=== PATIENT | female | born 1965 | race Caucasian/White ===

== ENCOUNTER 2019-04-18 06:54 | Outpatient (CLI) | payer OTHER, SELFPAY ==
[2019-04-18 07:49] LABS: Alanine Aminotransferase 20 U/L (4-35); Albumin Level 4.2 g/dL (3.5-5.1); Alkaline Phosphatase 79 U/L (38-126); Aspartate Amino Transferase 25 U/L (14-36); Bilirubin,Total 0.4 mg/dL (0.2-1.3); Blood Urea Nitrogen 12 mg/dL (7-17); Calcium 8.6 mg/dL (8.4-10.2); Carbon Dioxide 28 mmol/L (22-30); Chloride 99 mmol/L (98-107); Cholesterol 223 mg/dL (0-200); Estimated Glomerular Filt Rate > 60; Glucose 142 mg/dL (65-105); HDL Direct 42 mg/dL; Potassium 4.1 mmol/L (3.4-5.0); Sodium 139 mmol/L (137-145); Triglycerides 139 mg/dL (<150)
[2019-04-18 07:55] LABS: Hemoglobin A1C 6.9 % (<5.7)
[2019-04-18 08:00] LABS: LDL Cholesterol Direct 152 mg/dL
== END 2019-04-18 06:55 | disposition home or self-care (01) ==
PROVIDERS: PCP Emergency Medicine; Visit Provider Emergency Medicine
DX: E11.9 Type 2 diabetes mellitus without complications (principal); E78.5 Hyperlipidemia, unspecified
CPT/HCPCS: 36415; 80053; 80061; 83036

== ENCOUNTER 2019-09-11 07:51 | Outpatient (CLI) | payer OTHER, SELFPAY ==
--- NOTE | ~2019-09-11 | XR_ITS ---
XR hip RT 2V w AP pelvis 09/11/2019 08:23 Indication: Right hip pain Procedure: 3 views right hip Comparison: 09/02/2005 Findings: There is mild osteoarthritis of the right hip. There is a bridging osteophyte from the right L5 transverse process to the ileum. Mild degenerative c hanges of the sacroiliac joints. No acute fracture or traumatic malalignment. Impression: 1: Mild osteoarthritis of the right hip. Reviewed, dictated and finalized at location B. Impression: 1: Mild osteoarthritis of the right hip.
[2019-09-11 08:24] LABS: Alanine Aminotransferase 19 U/L (4-35); Albumin Level 4.3 g/dL (3.5-5.1); Alkaline Phosphatase 73 U/L (38-126); Aspartate Amino Transferase 23 U/L (14-36); Bilirubin,Total 0.4 mg/dL (0.2-1.3); Blood Urea Nitrogen 15 mg/dL (7-17); Carbon Dioxide 29 mmol/L (22-30); Chloride 101 mmol/L (98-107); Cholesterol 257 mg/dL (0-200); Estimated Glomerular Filt Rate > 60; Glucose 141 mg/dL (65-105); HDL Direct 42 mg/dL; Potassium 4.4 mmol/L (3.4-5.0); Sodium 137 mmol/L (137-145); Triglycerides 197 mg/dL (<150)
[2019-09-11 08:34] LABS: LDL Cholesterol Direct 169 mg/dL
== END 2019-09-11 07:52 | disposition home or self-care (01) ==
PROVIDERS: PCP Emergency Medicine; Visit Provider Emergency Medicine
DX: M25.551 Pain in right hip (principal); E78.5 Hyperlipidemia, unspecified; E11.9 Type 2 diabetes mellitus without complications; M16.11 Unilateral primary osteoarthritis, right hip
CPT/HCPCS: 36415; 73502; 80053; 80061; 83036

== ENCOUNTER 2019-09-29 08:48 | Outpatient (CLI) | payer OTHER, SELFPAY ==
--- NOTE | ~2019-09-29 | MM_ITS ---
EXAMINATION: MM screening norma BI w deana HISTORY: Screening mammogram TECHNIQUE: Craniocaudal and mediolateral oblique 3-D tomosynthesis images were obtained and synthetic 2-D images were generated. Rotated lateral cc view of left breast. CAD analysis was submitted and in terpreted. COMPARISON: No prior mammogram is available for comparison at this institution. BREAST PARENCHYMAL COMPOSITION: There are scattered areas of fibroglandular density. FINDINGS: There is no evidence of suspicious mass, calcification, or architectural distortion to sugg est malignancy in either breast. There has been no suspicious interval change. IMPRESSION: 1. No mammographic evidence of malignancy. 2. Recommend routine screening mammography in one year. BI-RADS Category 1: Negative Reviewed, dictated and finalized at location A.
== END 2019-09-29 08:49 | disposition home or self-care (01) ==
PROVIDERS: PCP Emergency Medicine; Visit Provider Emergency Medicine
DX: Z12.31 Encounter for screening mammogram for malignant neoplasm of breast (principal)
CPT/HCPCS: 77063; 77067

== ENCOUNTER 2019-11-10 07:56 | Outpatient (CLI) | payer OTHER, SELFPAY ==
[2019-11-10 08:55] LABS: Hemoglobin A1C 6.6 % (<5.7)
[2019-11-10 09:16] LABS: Creatinine Urine 83.3 mg/dL
[2019-11-10 09:18] LABS: Alanine Aminotransferase 18 U/L (4-35); Albumin Level 4.1 g/dL (3.5-5.1); Alkaline Phosphatase 67 U/L (38-126); Anion Gap 7 mmol/L (8-16); Aspartate Amino Transferase 20 U/L (14-36); Bilirubin,Total 0.4 mg/dL (0.2-1.3); Blood Urea Nitrogen 14 mg/dL (7-17); Calcium 8.8 mg/dL (8.4-10.2); Carbon Dioxide 30 mmol/L (22-30); Chloride 99 mmol/L (98-107); Cholesterol 190 mg/dL (0-200); Estimated Glomerular Filt Rate > 60; Glucose 134 mg/dL (65-105); HDL Direct 43 mg/dL; Potassium 4.2 mmol/L (3.4-5.0); Sodium 136 mmol/L (137-145); Triglycerides 117 mg/dL (<150)
[2019-11-10 09:29] LABS: LDL Cholesterol Direct 123 mg/dL
[2019-11-10 09:36] LABS: MALB Creatinine Ratio < 7.2 mg/g (0-30); Microalbumin Urine Random < 6.0 mg/L (0-16.7)
== END 2019-11-10 07:57 | disposition home or self-care (01) ==
LOC: ANHLAB 07:58
PROVIDERS: PCP Emergency Medicine; Visit Provider Emergency Medicine
DX: E11.9 Type 2 diabetes mellitus without complications (principal)
CPT/HCPCS: 36415; 80053; 80061; 82043; 83036

== ENCOUNTER 2020-03-14 07:59 | Outpatient (CLI) | payer OTHER, SELFPAY ==
[2020-03-14 08:59] LABS: Alanine Aminotransferase 22 U/L (4-35); Albumin Level 4.2 g/dL (3.5-5.1); Alkaline Phosphatase 73 U/L (38-126); Anion Gap 6 mmol/L (8-16); Aspartate Amino Transferase 24 U/L (14-36); Bilirubin,Total 0.3 mg/dL (0.2-1.3); Blood Urea Nitrogen 12 mg/dL (7-17); Calcium 9.8 mg/dL (8.4-10.2); Carbon Dioxide 33 mmol/L (22-30); Chloride 100 mmol/L (98-107); Cholesterol 192 mg/dL (0-200); Estimated Glomerular Filt Rate > 60; Glucose 161 mg/dL (65-105); HDL Direct 46 mg/dL; Potassium 4.2 mmol/L (3.4-5.0); Sodium 139 mmol/L (137-145); Triglycerides 143 mg/dL (<150)
[2020-03-14 09:11] LABS: LDL Cholesterol Direct 126 mg/dL
[2020-03-14 09:33] LABS: MALB Creatinine Ratio 30.9 mg/g (0-30)
== END 2020-03-14 08:00 | disposition home or self-care (01) ==
PROVIDERS: PCP Emergency Medicine; Visit Provider Emergency Medicine
DX: E78.5 Hyperlipidemia, unspecified (principal); E11.9 Type 2 diabetes mellitus without complications
CPT/HCPCS: 36415; 80053; 80061; 82043

== ENCOUNTER 2020-07-16 10:23 | Outpatient (CLI) | payer OTHER, SELFPAY ==
[2020-07-16 11:07] LABS: Hemoglobin A1C 7.3 % (<5.7)
[2020-07-16 11:10] LABS: Alanine Aminotransferase 29 U/L (4-35); Albumin Level 4.4 g/dL (3.5-5.1); Alkaline Phosphatase 73 U/L (38-126); Anion Gap 6 mmol/L (8-16); Aspartate Amino Transferase 33 U/L (14-36); Bilirubin,Total 0.3 mg/dL (0.2-1.3); Blood Urea Nitrogen 12 mg/dL (7-17); Calcium 9.9 mg/dL (8.4-10.2); Carbon Dioxide 32 mmol/L (22-30); Chloride 103 mmol/L (98-107); Cholesterol 222 mg/dL (0-200); Estimated Glomerular Filt Rate > 60; Glucose 150 mg/dL (65-105); HDL Direct 52 mg/dL; Potassium 4.1 mmol/L (3.4-5.0); Sodium 141 mmol/L (137-145); Triglycerides 154 mg/dL (<150)
[2020-07-16 11:21] LABS: LDL Cholesterol Direct 143 mg/dL
[2020-07-16 11:33] LABS: Creatinine Urine 40.6 mg/dL
[2020-07-16 11:37] LABS: MALB Creatinine Ratio 37.9 mg/g (0-30); Microalbumin Urine Random 15.4 mg/L (0-16.7)
== END 2020-07-16 10:24 | disposition home or self-care (01) ==
PROVIDERS: PCP Emergency Medicine; Visit Provider Emergency Medicine
DX: E78.5 Hyperlipidemia, unspecified (principal); E11.9 Type 2 diabetes mellitus without complications
CPT/HCPCS: 36415; 80053; 80061; 82043; 83036

== ENCOUNTER 2020-09-08 13:26 | Outpatient (CLI) | payer OTHER, SELFPAY ==
--- NOTE | ~2020-09-08 | MR_ITS ---
EXAMINATION: MR lumbar spine wo con DATE: 09/08/2020 14:10 INDICATION: Low back pain. Right hip pain. TECHNIQUE: Magnetic resonance imaging (MRI) of the lumbar spine was performed without intravenous con trast. Sequences included sagittal T2-weighted FSE, sagittal T2-weighted FS FSE, sagittal T1-weighted FSE, and axial T2-weighted FSE. COMPARISON: None FINDINGS: There is 11 degrees dextroscoliosis of thoracolumbar spine. There is 3 mm retrolisthesis of L1 on L2. Vertebral body heights are normal. There is moderately decreased disc height at L1-L2, mil dly decreased disc height at L2-L3 and L3-L4, moderately decreased disc height at L4-L5, and severely decreased disc height at L5-S1 with endplate remodeling. The distal spinal cord signal intensity is normal. The conus medullaris is at L1. The following disc levels are specifically discussed: L1-L2: The disc is bulging and has an annular fissure. There is mild bilateral facet joint osteoarthr itis. There is mild right and moderate left neural foraminal stenosis. There is mild central canal st enosis. L2-L3: The disc is bulging and has an annular fissure. There is severe bilateral facet joint osteoart hritis. There is mild bilateral neural foraminal stenosis. There is moderate central canal stenosis. L3-L4: The disc is bulging with superimposed left central extrusion. There is severe bilateral facet joint osteoarthritis. There is mild right and moderate left neural foraminal stenosis. There is moder ate central canal stenosis. L4-L5: The disc is bulging with superimposed right central extrusion. There is severe bilateral facet joint osteoarthritis. There is moderate right and mild left neural foraminal stenosis. There is mild central canal stenosis. L5-S1: The disc is bulging and has an annular fissure. There is moderate bilateral facet joint osteoa rthritis. There is mild bilateral neural foraminal stenosis. There is mild central canal stenosis. IMPRESSION: 1. Severe lumbar spondylosis. 2. Thoracolumbar dextroscoliosis. Reviewed, dictated and finalized at location A.
== END 2020-09-08 13:27 | disposition home or self-care (01) ==
LOC: ANHIMG 13:33
PROVIDERS: PCP Emergency Medicine; Visit Provider Nurse Practitioner Family
DX: M25.551 Pain in right hip (principal); M47.896 Other spondylosis, lumbar region
CPT/HCPCS: 72148

== ENCOUNTER 2020-09-24 08:39 | Outpatient (CLI) | payer OTHER, SELFPAY ==
--- NOTE | ~2020-09-24 | XR_ITS ---
EXAMINATION: XR lg joint inject/asp w image DATE: 09/24/2020 09:29 INDICATION: Right hip arthritis TECHNIQUE: A time-out was performed to verify the patient's name, date of , and procedure to b e performed. The procedure including the risks, benefits, and alternatives was discussed with the pat ient. Risks discussed included bleeding and infection. The patient understood the risks and agreed to proceed. The skin overlying the right hip joint was prepped and draped in usual sterile fashion. A nesthetic was administered with 1% lidocaine subcutaneously. A 22 G needle was advanced under fluoro scopic guidance into the joint. Injection of 1 mL of Omnipaque 240 confirmed intra-articular positio n of the needle. Subsequently, injectate consisting of 3 mL of a 2:1 mixture of 0.5% bupivacaine: 80 mg/mL Depo-Medrol for a total dosage of 80 mg Depo-Medrol was instilled. Washout of contrast was see n confirming intra-articular administration. The needle was removed and the entry site was cleaned an d dressed. There were no immediate complications. Fluoroscopy exposure time was 0.1 minutes. The tot al number of images was 3. FINDINGS: Real-time fluoroscopy demonstrates the needle in the right hip joint. Patient's pain prior to procedure:03/10. Patient's pain following the procedure: 03/10. Mild right hip osteoarthritis. IMPRESSION: 1. Successful right hip joint injection of local anesthetic and steroid. Reviewed, dictated and finalized at location A.
== END 2020-09-24 08:40 | disposition home or self-care (01) ==
LOC: ANHIMG 08:41
PROVIDERS: PCP Emergency Medicine; Visit Provider Nurse Practitioner Family
DX: M16.11 Unilateral primary osteoarthritis, right hip (principal)
CPT/HCPCS: 20610; 77002; J1040; Q9966

== ENCOUNTER 2020-10-08 09:06 | Outpatient (CLI) | payer OTHER, SELFPAY ==
--- NOTE | ~2020-10-08 | MM_ITS ---
EXAMINATION: MM screening norma BI w deana HISTORY: Screening TECHNIQUE: Craniocaudal and mediolateral oblique 3-D tomosynthesis images were obtained and synthetic 2-D images were generated. CAD analysis was submitted and interpreted. COMPARISON: 09/29/2019 BREAST PARENCHYMAL COMPOSITION: There are scattered areas of fibroglandular density. FINDINGS: There is no evidence of suspicious mass, calcification, or architectural distortion to sugg est malignancy in either breast. There has been no suspicious interval change. IMPRESSION: 1. No mammographic evidence of malignancy. 2. Recommend routine screening mammography in one year. BI-RADS Category 1: Negative Reviewed, dictated and finalized at location A.
== END 2020-10-08 09:07 | disposition home or self-care (01) ==
PROVIDERS: PCP Emergency Medicine; Visit Provider Emergency Medicine
DX: Z12.31 Encounter for screening mammogram for malignant neoplasm of breast (principal)
CPT/HCPCS: 77063; 77067

== ENCOUNTER 2020-12-17 07:13 | Outpatient (CLI) | payer OTHER, SELFPAY ==
[2020-12-17 08:33] LABS: Alanine Aminotransferase 20 U/L (4-35); Albumin Level 4.4 g/dL (3.5-5.1); Alkaline Phosphatase 76 U/L (38-126); Anion Gap 12 mmol/L (8-16); Aspartate Amino Transferase 22 U/L (14-36); Bilirubin,Total 0.4 mg/dL (0.2-1.3); Blood Urea Nitrogen 14 mg/dL (7-17); Calcium 9.3 mg/dL (8.4-10.2); Carbon Dioxide 25 mmol/L (22-30); Chloride 104 mmol/L (98-107); Cholesterol 208 mg/dL (0-200); Estimated Glomerular Filt Rate > 60; Glucose 170 mg/dL (65-110); HDL Direct 48 mg/dL; Potassium 4.2 mmol/L (3.4-5.0); Sodium 141 mmol/L (137-145); Triglycerides 146 mg/dL (<150)
[2020-12-17 08:39] LABS: Hemoglobin A1C 7.5 % (<5.7)
[2020-12-17 08:44] LABS: LDL Cholesterol Direct 129 mg/dL
[2020-12-17 09:16] LABS: Creatinine Urine 144.1 mg/dL
[2020-12-17 09:20] LABS: MALB Creatinine Ratio 6.7 mg/g (0-30); Microalbumin Urine Random 9.6 mg/L (0-16.7)
== END 2020-12-17 07:14 | disposition home or self-care (01) ==
PROVIDERS: PCP Emergency Medicine; Visit Provider Emergency Medicine
DX: E78.2 Mixed hyperlipidemia (principal); E11.9 Type 2 diabetes mellitus without complications
CPT/HCPCS: 36415; 80053; 80061; 82043; 83036

== ENCOUNTER 2021-03-28 07:28 | Outpatient (CLI) | payer OTHER, SELFPAY ==
[2021-03-28 08:11] LABS: Alanine Aminotransferase 21 U/L (4-35); Albumin Level 4.3 g/dL (3.5-5.1); Alkaline Phosphatase 78 U/L (38-126); Anion Gap 5 mmol/L (8-16); Aspartate Amino Transferase 22 U/L (14-36); Bilirubin,Total 0.2 mg/dL (0.2-1.3); Blood Urea Nitrogen 14 mg/dL (7-17); Calcium 9.4 mg/dL (8.4-10.2); Carbon Dioxide 30 mmol/L (22-30); Chloride 102 mmol/L (98-107); Cholesterol 204 mg/dL (0-200); Estimated Glomerular Filt Rate > 60; Glucose 161 mg/dL (65-110); HDL Direct 40 mg/dL; Sodium 137 mmol/L (137-145); Triglycerides 154 mg/dL (<150)
[2021-03-28 08:18] LABS: Hemoglobin A1C 7.1 % (<5.7)
[2021-03-28 08:20] LABS: LDL Cholesterol Direct 123 mg/dL
== END 2021-03-28 07:29 | disposition home or self-care (01) ==
PROVIDERS: PCP Emergency Medicine; Visit Provider Emergency Medicine
DX: E78.2 Mixed hyperlipidemia (principal); I10 Essential (primary) hypertension; E11.9 Type 2 diabetes mellitus without complications
CPT/HCPCS: 36415; 80053; 80061; 83036

== ENCOUNTER 2021-07-16 08:17 | Outpatient (CLI) | payer OTHER, SELFPAY ==
[2021-07-16 08:48] LABS: Basophils Percent Auto 0.4 % (0.2-1.2); Eosinophils Absolute Auto 0.4 K/mm3 (0-0.3); Eosinophils Percent Auto 8.7 % (0-4.4); Hematocrit 36.3 % (37.0-47.0); Hemoglobin 11.9 g/dL (12.0-15.0); Immature Granulocyte Absolute 0.02 K/mm3 (0.00-0.031); Immature Granulocyte Percent A 0.4 % (0-0.5); Lymphocytes Absolute Auto 1.19 K/mm3 (0.9-3.2); Lymphocytes Percent Auto 23.4 % (18.3-44.2); Mean Corpuscular HGB Conc 32.8 g/dl (32-36); Mean Corpuscular Hemoglobin 29.5 pg (26-34); Mean Corpuscular Volume 89.9 fl (80-100); Monocytes Absolute Auto 0.4 K/mm3 (0.1-0.6); Monocytes Percent Auto 8.7 % (2.6-8.5); Neutrophils Percent Auto 58.4 % (45.5-73.1); Platelet Count Result 254 k/mm3 (150-375); Red Blood Count 4.04 M/mm3 (4.2-5.4); Red Cell Distribution Width 13.4 % (11.5-14.5); White Blood Count 5.1 K/mm3 (4.5-10.0)
[2021-07-16 08:52] LABS: Appearance Urine Clear (Clear); Bilirubin Urine Negative (Negative); Color Urine Yellow (Yellow); Glucose Urine UA Negative (Negative); Ketones Urine Negative (Negative); Leukocyte Esterase Ur 2+ LEU/UL (NEGATIVE); Nitrate Urine Negative (Negative); Protein Urine Negative (Negative); Specific Grav Ur 1.015 (1.001-1.035); Urobilinogen Urine 0.2 mg/dL (<2.0)
[2021-07-16 09:03] LABS: CRP < 0.5 mg/dL (<1.0); Phosphorus 3.2 mg/dL (2.5-4.5); Uric Acid 5.4 mg/dL (2.5-7.5)
[2021-07-16 09:06] LABS: Alanine Aminotransferase 20 U/L (6-35); Alkaline Phosphatase 75 U/L (38-126); Anion Gap 10 mmol/L (8-16); Aspartate Amino Transferase 23 U/L (14-36); Bilirubin,Total 0.3 mg/dL (0.2-1.3); Blood Urea Nitrogen 13 mg/dL (7-17); Calcium 9.1 mg/dL (8.4-10.2); Carbon Dioxide 28 mmol/L (22-30); Chloride 102 mmol/L (98-107); Cholesterol 207 mg/dL (0-200); Estimated Glomerular Filt Rate > 60; Glucose 140 mg/dL (65-110); HDL Direct 45 mg/dL; Potassium 4.2 mmol/L (3.4-5.0); Sodium 140 mmol/L (137-145); Triglycerides 106 mg/dL (<150)
[2021-07-16 09:07] LABS: INR 1.1; Prothrombin Time 13.4 Seconds (11.1-14.7)
[2021-07-16 09:08] LABS: Iron 74 ug/dL (37-170)
[2021-07-16 09:10] LABS: Add Urine Microscopic? YES; Blood Urine Trace-Intact (Negative)
[2021-07-16 09:12] LABS: Bacteria Urine Trace /hpf; RBC Urine 0-2 /hpf (0-2); Squamous Epithelial Cell Urine Rare /hpf (Few); WBC Urine 16-20 /hpf (0-3)
[2021-07-16 09:17] LABS: LDL Cholesterol Direct 127 mg/dL; Percent Iron Saturation 26 % (20-50)
[2021-07-16 09:24] LABS: Vitamin D 25 Hydroxy 87.2 ng/mL
[2021-07-16 09:35] LABS: Creatinine Urine 60.7 mg/dL
[2021-07-16 09:36] LABS: Hemoglobin A1C 6.9 % (<5.7)
[2021-07-16 09:40] LABS: MALB Creatinine Ratio 14.2 mg/g (0-30); Microalbumin Urine Random 8.6 mg/L (0-16.7)
[2021-07-16 10:09] LABS: Folic Acid > 20.0 ng/mL (2.76->20)
[2021-07-19 11:16] LABS: Triiodothyronine T3 Free 3.5 pg/mL (2.3-4.2)
[2021-07-20 02:07] LABS: Insulin Level Total 14.8 uIU/mL (<=19.6)
== END 2021-07-16 08:18 | disposition home or self-care (01) ==
LOC: ANHLAB 08:21
PROVIDERS: PCP Emergency Medicine; Visit Provider Emergency Medicine
DX: E78.2 Mixed hyperlipidemia (principal); E11.9 Type 2 diabetes mellitus without complications; I10 Essential (primary) hypertension; E88.81 Metabolic syndrome and other insulin resistance; Z79.899 Other long term (current) drug therapy; E61.1 Iron deficiency; E03.9 Hypothyroidism, unspecified; E16.2 Hypoglycemia, unspecified; R82.998 Other abnormal findings in urine; E55.9 Vitamin D deficiency, unspecified; E53.8 Deficiency of other specified B group vitamins; E79.0 Hyperuricemia without signs of inflammatory arthritis and tophaceous disease
CPT/HCPCS: 36415; 80053; 80061; 81001; 82043; 82306; 82607; 82728; 82746; 83036; 83525; 83540; 83550; 83735; 84100; 84443; 84481; 84550; 85025; 85610; 86140

== ENCOUNTER 2021-08-05 09:21 | Outpatient (CLI) | payer OTHER, SELFPAY ==
--- NOTE | 2021-08-05 09:43 | ECG_ITS ---
Measurements Intervals [place] Rate: 78 P: 59 SD: 160 QRS: 34 QRSD: 102 T: 44 QT: 374 QTc: 427 Interpretive Statements SINUS RHYTHM Electronically Signed On 08-05-2021 11:16:58 CDT by Xavier Toledo M.D.
[2021-08-05 09:58] LABS: Basophils Percent Auto 0.5 % (0.2-1.2); Eosinophils Absolute Auto 0.6 K/mm3 (0-0.3); Eosinophils Percent Auto 8.8 % (0-4.4); Hematocrit 37.4 % (37.0-47.0); Hemoglobin 11.9 g/dL (12.0-15.0); Immature Granulocyte Absolute 0.02 K/mm3 (0.00-0.031); Immature Granulocyte Percent A 0.3 % (0-0.5); Lymphocytes Absolute Auto 1.37 K/mm3 (0.9-3.2); Lymphocytes Percent Auto 21.2 % (18.3-44.2); Mean Corpuscular HGB Conc 31.8 g/dl (32-36); Mean Corpuscular Hemoglobin 29.2 pg (26-34); Mean Corpuscular Volume 91.9 fl (80-100); Mean Platelet Volume 9.4 fl (7.4-10.4); Monocytes Absolute Auto 0.5 K/mm3 (0.1-0.6); Monocytes Percent Auto 7.4 % (2.6-8.5); Neutrophils Percent Auto 61.8 % (45.5-73.1); Platelet Count Result 281 k/mm3 (150-375); Red Blood Count 4.07 M/mm3 (4.2-5.4); Red Cell Distribution Width 13.8 % (11.5-14.5); White Blood Count 6.5 K/mm3 (4.5-10.0)
[2021-08-05 10:05] LABS: Alanine Aminotransferase 19 U/L (6-35); Albumin Level 4.3 g/dL (3.5-5.1); Alkaline Phosphatase 80 U/L (38-126); Anion Gap 8 mmol/L (8-16); Aspartate Amino Transferase 21 U/L (14-36); Bilirubin,Total 0.4 mg/dL (0.2-1.3); Blood Urea Nitrogen 14 mg/dL (7-17); Calcium 8.9 mg/dL (8.4-10.2); Carbon Dioxide 28 mmol/L (22-30); Chloride 104 mmol/L (98-107); Estimated Glomerular Filt Rate > 60; Glucose 148 mg/dL (65-110); Sodium 140 mmol/L (137-145)
== END 2021-08-05 09:22 | disposition home or self-care (01) ==
LOC: ANHLAB 09:25
PROVIDERS: PCP Emergency Medicine; Visit Provider Emergency Medicine
DX: Z01.810 Encounter for preprocedural cardiovascular examination (principal); Z01.818 Encounter for other preprocedural examination
CPT/HCPCS: 36415; 80053; 85025; 93005

== ENCOUNTER 2022-01-28 07:28 | Outpatient (CLI) | payer OTHER, SELFPAY ==
[2022-01-28 08:24] LABS: Hemoglobin A1C 7.1 % (<5.7)
[2022-01-28 08:25] LABS: Alanine Aminotransferase 18 U/L (6-35); Albumin Level 4.3 g/dL (3.5-5.1); Alkaline Phosphatase 72 U/L (38-126); Anion Gap 6 mmol/L (8-16); Aspartate Amino Transferase 22 U/L (14-36); Bilirubin,Total 0.2 mg/dL (0.2-1.3); Blood Urea Nitrogen 15 mg/dL (7-17); Carbon Dioxide 29 mmol/L (22-30); Chloride 102 mmol/L (98-107); Cholesterol 219 mg/dL (0-200); Estimated Glomerular Filt Rate > 60; Glucose 141 mg/dL (65-110); HDL Direct 43 mg/dL; Potassium 4.4 mmol/L (3.4-5.0); Sodium 137 mmol/L (137-145); Triglycerides 90 mg/dL (<150)
[2022-01-28 08:36] LABS: LDL Cholesterol Direct 123 mg/dL
[2022-01-28 08:48] LABS: Creatinine Urine 141.7 mg/dL
[2022-01-28 08:52] LABS: MALB Creatinine Ratio 10.9 mg/g (0-30); Microalbumin Urine Random 15.5 mg/L (0-16.7)
== END 2022-01-28 07:29 | disposition home or self-care (01) ==
LOC: ANHLAB 07:30
PROVIDERS: PCP Emergency Medicine; Visit Provider Emergency Medicine
DX: E11.9 Type 2 diabetes mellitus without complications (principal); E78.5 Hyperlipidemia, unspecified; I10 Essential (primary) hypertension
CPT/HCPCS: 36415; 80053; 80061; 82043; 83036

== ENCOUNTER 2022-05-26 08:04 | Outpatient (CLI) | payer OTHER, SELFPAY ==
[2022-05-26 10:06] LABS: Prothrombin Time 12.7 Seconds (11.1-14.7)
[2022-05-26 10:07] LABS: Partial Thromboplastin Time 22.8 SECONDS (22.3-36.8)
== END 2022-05-26 08:05 | disposition home or self-care (01) ==
PROVIDERS: PCP Emergency Medicine; Visit Provider Emergency Medicine
DX: R23.3 Spontaneous ecchymoses (principal)
CPT/HCPCS: 36415; 85610; 85730

== ENCOUNTER 2022-07-30 07:45 | Outpatient (CLI) | payer OTHER, SELFPAY ==
[2022-07-30 08:16] LABS: Alanine Aminotransferase 22 U/L (6-35); Albumin Level 4.4 g/dL (3.5-5.1); Alkaline Phosphatase 71 U/L (38-126); Anion Gap 8 mmol/L (8-16); Aspartate Amino Transferase 25 U/L (14-36); Bilirubin,Total 0.4 mg/dL (0.2-1.3); Blood Urea Nitrogen 11 mg/dL (7-17); Calcium 8.8 mg/dL (8.4-10.2); Carbon Dioxide 28 mmol/L (22-30); Chloride 101 mmol/L (98-107); Cholesterol 218 mg/dL (0-200); Estimated Glomerular Filt Rate > 60; Glucose 144 mg/dL (65-110); HDL Direct 46 mg/dL; Potassium 3.9 mmol/L (3.4-5.0); Sodium 137 mmol/L (137-145); Triglycerides 154 mg/dL (<150)
[2022-07-30 08:30] LABS: LDL Cholesterol Direct 137 mg/dL
[2022-08-03 17:56] LABS: Vitamin D 1,25 (OH)2 Total 27 pg/mL (18-72); Vitamin D2 1,25 (OH)2 <8 pg/mL; Vitamin D3 1,25 (OH)2 27 pg/mL
== END 2022-07-30 07:46 | disposition home or self-care (01) ==
LOC: ANHLAB 07:47
PROVIDERS: PCP Emergency Medicine; Visit Provider Emergency Medicine
DX: R53.83 Other fatigue (principal); E11.9 Type 2 diabetes mellitus without complications; I10 Essential (primary) hypertension
CPT/HCPCS: 36415; 80053; 80061; 82652; 83036

== ENCOUNTER 2023-04-14 07:47 | Outpatient (CLI) | payer OTHER, SELFPAY ==
[2023-04-14 08:27] LABS: Alanine Aminotransferase 20 U/L (6-35); Albumin Level 4.3 g/dL (3.5-5.1); Alkaline Phosphatase 72 U/L (38-126); Anion Gap 3 mmol/L (8-16); Aspartate Amino Transferase 24 U/L (14-36); Bilirubin,Total 0.3 mg/dL (0.2-1.3); Blood Urea Nitrogen 12 mg/dL (7-17); Calcium 9.2 mg/dL (8.4-10.2); Carbon Dioxide 33 mmol/L (22-30); Chloride 105 mmol/L (98-107); Cholesterol 224 mg/dL (0-200); Estimated Glomerular Filt Rate > 60; Glucose 180 mg/dL (65-110); HDL Direct 47 mg/dL; Potassium 4.1 mmol/L (3.4-5.0); Sodium 141 mmol/L (137-145); Triglycerides 144 mg/dL (<150)
[2023-04-14 08:31] LABS: Hemoglobin A1C 7.8 % (<5.7)
[2023-04-14 08:37] LABS: LDL Cholesterol Direct 139 mg/dL
[2023-04-14 09:15] LABS: Vitamin D 25 Hydroxy 91.8 ng/mL
== END 2023-04-14 07:48 | disposition home or self-care (01) ==
LOC: ANHLAB 07:48
PROVIDERS: PCP Emergency Medicine; Visit Provider Emergency Medicine
DX: I10 Essential (primary) hypertension (principal); E11.9 Type 2 diabetes mellitus without complications; E78.5 Hyperlipidemia, unspecified; E55.9 Vitamin D deficiency, unspecified
CPT/HCPCS: 36415; 80053; 80061; 82306; 83036

== ENCOUNTER 2023-06-02 08:50 | Outpatient (CLI) | payer OTHER, SELFPAY ==
--- NOTE | 2023-06-02 09:30 | ECG_ITS ---
Measurements Intervals [place] Rate: 64 P: 63 RI: 187 QRS: 27 QRSD: 108 T: 38 QT: 382 QTc: 394 Interpretive Statements SINUS RHYTHM INCOMPLETE RIGHT BUNDLE BRANCH BLOCK BORDERLINE ECG COMPARED TO ECG 08/05/2021 09:52:00 INCOMPLETE RIGHT BUNDLE-BRANCH BLOCK NOW PRESENT Electronically Signed On 06-02-2023 14:35:23 CDT by Ernie James M.D.
[2023-06-02 09:56] LABS: Hematocrit 38.5 % (37.0-47.0); Hemoglobin 12.4 g/dL (12.0-15.0); Mean Corpuscular HGB Conc 32.2 g/dl (32-36); Mean Corpuscular Hemoglobin 29.4 pg (26-34); Mean Corpuscular Volume 91.2 fl (80-100); Mean Platelet Volume 9.8 fl (7.4-10.4); Platelet Count Result 280 k/mm3 (150-375); Red Blood Count 4.22 M/mm3 (4.2-5.4); Red Cell Distribution Width 13.6 % (11.5-14.5); White Blood Count 5.9 K/mm3 (4.5-10.0)
[2023-06-02 10:11] LABS: Anion Gap 6 mmol/L (4-12); Blood Urea Nitrogen 11 mg/dL (7-17); Calcium 9.5 mg/dL (8.4-10.2); Carbon Dioxide 30 mmol/L (22-30); Chloride 102 mmol/L (98-107); Estimated Glomerular Filt Rate > 60; Glucose 172 mg/dL (65-110); Sodium 138 mmol/L (137-145)
== END 2023-06-02 08:51 | disposition home or self-care (01) ==
LOC: ANHLAB 08:52
PROVIDERS: PCP Emergency Medicine; Visit Provider Emergency Medicine
DX: Z01.810 Encounter for preprocedural cardiovascular examination (principal); R93.1 Abnormal findings on diagnostic imaging of heart and coronary circulation; I45.10 Unspecified right bundle-branch block; R53.83 Other fatigue; E78.5 Hyperlipidemia, unspecified; I10 Essential (primary) hypertension
CPT/HCPCS: 36415; 80048; 85027; 93005

== ENCOUNTER 2024-02-11 07:49 | Outpatient (CLI) | payer OTHER, SELFPAY ==
[2024-02-11 08:40] LABS: Alanine Aminotransferase 20 U/L (6-35); Albumin Level 4.3 g/dL (3.5-5.1); Alkaline Phosphatase 80 U/L (38-126); Anion Gap 4 mmol/L (4-12); Aspartate Amino Transferase 26 U/L (14-36); Bilirubin,Total 0.4 mg/dL (0.2-1.3); Blood Urea Nitrogen 12 mg/dL (7-17); Calcium 9.4 mg/dL (8.4-10.2); Carbon Dioxide 30 mmol/L (22-30); Chloride 105 mmol/L (98-107); Cholesterol 156 mg/dL (0-200); Estimated Glomerular Filt Rate > 60; Glucose 130 mg/dL (65-110); HDL Direct 46 mg/dL; Sodium 139 mmol/L (137-145); Triglycerides 114 mg/dL (<150)
[2024-02-11 08:51] LABS: LDL Cholesterol Direct 75 mg/dL
[2024-02-11 10:31] LABS: Creatinine Urine 64.8 mg/dL
[2024-02-11 10:35] LABS: MALB Creatinine Ratio 83.8 mg/g (0-30); Microalbumin Urine Random 54.3 mg/L (0-16.7)
[2024-02-11 10:42] LABS: Vitamin D 25 Hydroxy 90.1 ng/mL
[2024-02-11 10:59] LABS: Hemoglobin A1C 6.5 % (<5.7)
== END 2024-02-11 07:50 | disposition home or self-care (01) ==
LOC: ANHLAB 07:50
PROVIDERS: PCP Emergency Medicine; Visit Provider Emergency Medicine
DX: E55.9 Vitamin D deficiency, unspecified (principal); E78.5 Hyperlipidemia, unspecified; E11.9 Type 2 diabetes mellitus without complications
CPT/HCPCS: 36415; 80053; 80061; 82043; 82306; 83036

== ENCOUNTER 2024-08-18 07:43 | Outpatient (CLI) | payer OTHER, SELFPAY ==
--- OUTSIDE RECORDS SUMMARY | 2024-08-18 07:46 | XMS_ITS ---
Author Organization [facility] Address [address] [place], [place] [id number] Care Team Providers Care Zanjero Name Role Manuel Bess Primary Care Provider [phone] REASON FOR VISIT F/U L THR Encounters Encounter Location Date Provider Diagnosis [facility] [address] [place], [place] [id number] 07/20/2023 Manuel Arechiga PLAN OF TREATMENT No Information
--- OUTSIDE RECORDS SUMMARY | 2024-08-18 07:47 | XMS_ITS | Referral Summary ---
Author Organization [facility] [address] ill[address] [facility] Address [address] [place] [address] Care Team Providers Care Mutton Puncher Name Role Phone Felix Jara MD Primary Care Provider [phone] Encounters Date Type Department Care Team Description 07/25/2024 2:00 PM CDT Office Visit [facility] [address] [address] Felix Jara MD Type 2 diabetes mellitus without complication, without long-term current use of insulin (HCC) (Primary Dx); Hypertension associated with diabetes (HCC); Hyperlipidemia associated with type 2 diabetes mellitus (HCC) 06/20/2024 10:59 AM CDT - 06/20/2024 11:59 PM CDT Hospital Encounter [facility] Orthopedics and Sports Medicine at [address] [phone] Discharge Disposition: Discharge to home or self care 06/20/2024 11:00 AM CDT Office Visit [facility] Orthopedics and Sports Medicine at [address] [phone] Manuel Arechiga MD Presence of left artificial hip joint (Primary Dx) 06/06/2024 [facility] [address] [place] [address] [address] [place] [address] Vikki Hernandez, TEOFILO Screening for colon cancer (Primary Dx) from Last 3 Months Allergies Active Allergy Reactions Criticality Noted Date Comments Adhesive Rash,Redness Medium 08/29/2021 Adhesive Tape-Silicones Rash Medium 03/17/2024 Medications cholecalcifero l (VITAMIN D-3) 50,000 unit capsule Take 1 capsule (50,000 Units total) by mouth once a week 03/15/19 24 Active doxycycline (PERIOSTAT) 20 mg tablet Take 1 tablet (20 mg total) by mouth daily Active fluoride, sodium, (DENTA 5000 PLUS DENTAL) 1 application, Topical, qpm, 0 07/12/19 22 Active losartan (COZAAR) 25 mg tablet Take 1 tablet (25 mg total) by mouth daily Active metFORMIN (GLUCOPHAGE) 500 mg tablet Take 1 tablet (500 mg total) by mouth 2 (two) times a day Active blood glucose diagnostic strip 1 each by other route daily DX: E11.9 100 strip 3 03/07/19 25 Active lancets misc Test sugars once daily contour next machine dx E11.9 100 each 03/10/19 25 Active atorvastatin (LIPITOR) 40 mg tablet Take 1 tablet (40 mg total) by mouth daily 90 tablet 3 07/26/19 25 026 Active amoxicillin 500 mg capsule TAKE 4 CAPSULE BY MOUTH SINGLE DOSE DIRECTED PREMEDICATION ONE HOUR BEFORE DENTAL APPOINTMENT. 06/02/19 25 Active fluoride, sodium, 1.1 % paste PLEASE SEE ATTACHED FOR DETAILED DIRECTIONS 06/03/19 25 Active atorvastatin (LIPITOR) 40 mg tablet Take 1 tablet (40 mg total) by mouth daily 90 tablet 3 06/17/19 24 025 Discontinu ed(Reorder ) varicella-zost er (SHINGRIX) 50 mcg/0.5 mL vaccine Inject 0.5 mL into the muscle as instructed once for 1 dose 0.5 mL 07/26/19 25 025 pneumococcal 20-valent (PREVNAR 20) 0.5 mL vaccine Inject 0.5 mL into the muscle as instructed once for 1 dose 0.5 mL 07/26/19 25 025 Active Problems Problem Noted Date Diagnosed Date Type 2 diabetes mellitus wit hout complication, without long-term current use of insulin 11/17/2023 Assessment & Plan (11/17/2023 10:42 AM CDT): Discussed at length Presence of left artificial hip joint 09/20/2023 Hypertension associated with diabetes 06/17/2023 Assessment & Plan (11/17/2023 10:44 AM CDT): Bp at target. Assessment & Plan (06/17/2023 10:20 AM CDT): Blood pressure controlled on current medications including an ARB which will be continued. Hyperlipidemia associated with type 2 diabetes suma machado 06/17/2023 Assessment & Plan (11/17/2023 10:42 AM CDT): Stable, doing well Assessment & Plan (06/17/2023 10:21 AM CDT): On low intensity statin with LDL not well controlled. Importance of diabetes management discussed in detail. Changed her statin to high-intensity in the setting of elevated cholesterol and type 2 diabetes Immunizations Immunization Administration Dates Next Due Influenza, Quadrivalent, Spl it, Preservative Free, Intramuscular 12/07/2022,12/31/2021,12/31/2020 Influenza, Trivalent, Cell C ulture-based MDCK, Preservative Free, Antibiotic Free, Intramuscular 01/28/2024 PPD TEST, PPD, MULTIPUNCTURE 06/30/2023 ZOSTER Recombinant 04/21/2020 Social History Tobacco Use Types Packs/Day Years Used Date Smoking Tobacco: Never Smokeless Tobacco: Never Tobacco Cessation:Counseling Given: Not Answered Comments Unknown Sex and Gender Information Value Date Recorded Sex Assigned at Not on file Legal Sex Female 2:07 PM CDT Gender Identity Not on file Sexual Orientation Not on file Last Filed Vital Signs Vital Sign Reading Time Taken Comments Blood Pressure 130/80 07/25/2024 1:25 PM CDT Pulse 60 07/25/2024 1:25 PM CDT Temperature - - Respiratory Rate 14 06/17/2023 9:41 AM CDT Oxygen Saturation 98% 06/17/2023 9:41 AM CDT Inhaled Oxygen Concentration - - Weight 113.4 kg (250 lb) 07/25/2024 1:25 PM CDT Height 167.6 cm (5' 6) 07/25/2024 1:25 PM CDT Body Mass Index 40.35 07/25/2024 1:25 PM CDT Plan of Treatment Not on file Procedures Procedure Name Priority Date/Time Associated Diagnosis Comments POCT HEMOGLOBIN A1C Routine 07/25/2024 1:28 PM CDT Type 2 diabetes mellitus without complication, without long-term current use of insulin (HCC) XR HIP LEFT W PELVIS 2 OR 3 VIEWS Schedule Routine, Read Routine (OP Routine) 06/20/2024 11:03 AM CDT Presence of left artificial hip joint EGFR Routine 11/17/2023 11:19 AM CDT Type 2 diabetes mellitus without complication, without long-term current use of insulin (HCC) Hypertension associated with diabetes (HCC) Hyperlipidemia associated with type 2 diabetes mellitus (HCC) POCT LIPID PANEL Routine 11/17/2023 10:4 3 AM CDT Type 2 diabetes mellitus without complication, without long-term current use of insulin (HCC) Hypertension associated with diabetes (HCC) Hyperlipidemia associated with type 2 diabetes mellitus (HCC) from Last 3 Months or Most Recently Relevant to Health Maintenance Results * (ABNORMAL) POCT hemoglobin A1c (07/25/2024 1:28 PM CDT) Hemoglobin A1C, POC 6.6(A) 4.0 - 5.6 % Blood 07/25/2024 1:28 PM CDT Felix Jara MD POINT OF CARE TEST ORDERABLES Final Result * XR Hip Left 2 or 3 Views W Pelvis (06/20/2024 11:03 AM CDT) Anatomical Region Laterality Modality Lower Extremities, Hip, Pelvis Left D igital Radiography Narrative 06/20/2024 11:09 AM CDT Left hip:Today we obtained x-rays of the hip and pelvis and they show that the prosthesis is in excellent position with no signs of loosening or wear or any other problems. Right hip:Today we obtained x-rays of the hip and pelvis and they show that the prosthesis is in excellent position with no signs of loosening or wear or any other problems. The leg lengths and offset appeared to be equal on x-ray. us Manuel Arechiga MD IMG XR PROCEDURES Final R esult * eGFR (11/17/2023 11:19 AM CDT) eGFR >90 >=60 mL/min/1. 73 m2 Comment: Interpretive Data Reference Interval Normal >/= 90 mL/min/1.73m2 Mildly decreased* 60 - 89 mL/min/1.73m2 Mildly to moderately decreased 45 - 59 mL/min/1.73m2 Moderately to severely decreased 30 - 44 mL/min/1.73m2 Severely decreased 15 - 29 mL/min/1.73m2 Kidney Failure < 15 mL/min/1.73m2 *Relative to young adult level Estimated glomerular filtration rate is determined by the 2020 CKD-EPI equation recommended by the National Kidney Foundation (A Unifying Approach to GFR Estimation: Recommendations of the NKF-ASK Task Force on Reassessing the Inclusion of Race in Diagnosing Kidney Disease, JASN 2020). The CKD-EPI equation should not be used for patients with unstable renal function and has not been validated in children and those over 70. Current interpretive data was last reviewed 2020. Blood 11/17/2023 11:1 9 AM CDT 11/17/2023 12:12 PM CDT us Felix Jara MD LAB BLOOD ORDERABLES Final Re sult [facility] Department [place] [address] * POCT lipid panel (11/17/2023 10:43 AM CDT) Cholesterol, POC 166 mg/dL HDL, POC 44 mg/dL Triglycerides, POC 107 mg/dL LDL Cholesterol POC 101 mg/dL Non-HDL Cholesterol, POC 122 mg/dL Cholesterol Total, POC 166 mg/dL Capillary blood 11/17/2023 1 0:43 AM CDT Felix Jara MD POINT OF CARE TEST ORDERABLES Final Result from Last 3 Months or Most Recently Relevant to Health Maintenance Insurance Care Teams Mutton Puncher Relationship Specialty Start Date End Date Felix Jara MD PCP - General Internal Medicine 11/17/23
--- OUTSIDE RECORDS SUMMARY | 2024-08-18 07:47 | XMS_ITS | Patient Health Record ---
Author Organization [facility] Address [address] [place], [place] [id number] Care Team Providers Care Sheet Rock Installation Helper Name Role Phone Manuel Arechiga Primary Care Provider [phone] ALLERGIES No Known Allergies REASON FOR REFERRAL No Information MEDICATIONS Medication SIG (Take, Route, Fr equency, Duration) Notes Start Date End Date Status Vitamin D-3 Active Doxycycline Active Simvastatin Active Denta 5000 Plus Acti ve metFORMIN HCl Active Losartan Potassium A ctive SOCIAL HISTORY Tobacco Use: Social History Observation Description Date Details (start date - stop date) Never Smoker NA - NA Sex Assigned At : Social History Observation Description Sex Assigned At Unknown Tobacco Use/Smoking Question Answer Notes Are you a nonsmoker PROBLEMS Problem Type ICD Code Onset Dates Problem Status W/U Status Risk SNOMED Code Notes Problem Unilateral primary osteoarthritis, right hip (M16.11) Active confirmed [id number] Problem Arthritis of right hip (M16.11) Active confirmed Arthritis of ri ght hip (5434376986198728) Problem H/O total hip arthroplasty (Z96.649) Active confirmed History of tota l hip arthroplasty (206069289931) Problem Primary osteoarthritis of right hip (M16.11) Active confirmed Localized, prim jamie osteoarthritis of the pelvic region and thigh (687639490) Problem Primary osteoarthritis of left hip (M16.12) Active confirmed [id number] PLAN OF TREATMENT Pending Test Test Name Order Date X ray : Hip, right, 2 06/05/2021 X ray : Hip, right, 2 09/11/2021 X ray : Bilateral Hip & Pelvis 3 023 X ray : Bilateral Hip & Pelvis 3 022 X ray : Bilateral Hip & Pelvis 3 022 X ray : Bilateral Hip & Pelvis 3 023 Insurance Providers Payer Name Payer Address Payer Phone Subscriber Number Group Number Insured Name Patient Relationship to Insured Coverage Start Date Coverage End Date [employer] [id number] [address] [place] [address] [phone] [id number] Talya Zambrano Self - patient is the insured MEDICAL (GENERAL) HISTORY Surgical History Surgery Date(Month/Year)
--- OUTSIDE RECORDS SUMMARY | 2024-08-18 07:47 | XMS_ITS | Encounter Summary ---
Author Organization [facility] Healthcare Address [address] [place] [address] Care Team Providers Care Engagement Quality Consultant Name Role Phone Fernando Haque MD Primary Care Provide r Reason for Visit * Diagnostic Imaging (Routine) - Closed Specialty Diagnoses / Procedures Referred By Clinton t Referred To Contact Diagnoses Left hip pain Procedures XR Hip Left 2 or 3 Views W Pelvis Manuel Arechiga MD Phone: tel: fax: [facility] Referral ID Status Reason Start Date Expiration Date Visits Re quested Visits Authorized [id number] Closed 08/02/2023 08/31/2024 1 1 Encounter Details Date Type Department Care Team (Late st Contact Info) Description 08/02/2023 12:54 PM CDT Hospital Encounter [facility] Orthopedics and Sports Medicine at [address] [phone] Social History Tobacco Use Types Packs/Day Years Used Date Smoking Tobacco: Never Smokeless Tobacco: Never Comments Unknown Sex and Gender Information Value Date Recorded Sex Assigned at Not on file Legal Sex Female 2:07 PM CDT Gender Identity Not on file Sexual Orientation Not on file documented as of this encounter Plan of [...] on filedocumented in this encounter Care Teams Engagement Quality Consultant Relationship Specialty Start Date End Date Fernando Haque MD [address] [place] [address] PCP - General Emergency Medicine 06/17/23 11/16/23 documented as of this encounter
--- OUTSIDE RECORDS SUMMARY | 2024-08-18 07:47 | XMS_ITS ---
Author Organization [facility] Address [address] [place], [place] [address] Care Team Providers Care Bow String Maker Name Role Phone Manuel Arechiga Primary Care Provider [phone] Encounters Encounter Location Date Provider Diagnosis [facility] [address] [place], [place] [phone] 04/05/2023 Manuel Arechiga PLAN OF TREATMENT No Information
--- OUTSIDE RECORDS SUMMARY | 2024-08-18 07:47 | XMS_ITS | Clinical Summary ---
Author Organization [facility] [address] Address [address] [place] [address] Care Team Providers Care Cnc Laser Operator Name Role Phone Felix Jara MD Primary Care Provider [phone] Allergies Active Allergy Reactions Criticality Noted Date [...] once for 1 dose 0.5 mL 07/26/19 025 Active Problems Problem Noted Date Diagnosed [...] of elevated cholesterol and type 2 diabetes Encounters Date Type Department Care Team Description 07/25/2024 2:00 PM CDT Office Visit [facility] [address] [place] [address] [place] [phone] Felix Jara MD Type 2 diabetes mellitus without complication, without long-term current use of insulin (HCC) (Primary Dx); Hypertension associated with diabetes (HCC); Hyperlipidemia associated with type 2 diabetes mellitus (HCC) 06/20/2024 11:00 AM CDT Office Visit [facility] at [address] [phone] Manuel Arechiga MD Presence of left artificial hip joint (Primary Dx) 06/20/2024 10:59 AM CDT - 06/20/2024 11:59 PM CDT Hospital Encounter [facility] at [address] [phone] Discharge Disposition: Discharge to home or self care 06/06/2024 Orders Only [facility] [address] [place] [address] [address] [place] for [facility] [place] [address] [facility] for colon cancer (Primary Dx) from Last 3 Months Immunizations Immunization Administration Dates Next Due Influenza, Quadrivalent, Spl it, Preservative Free, Intramuscular 12/07/2022,12/31/2021,12/31/2020 Influenza, Trivalent, Cell C ulture-based MDCK, Preservative Free, Antibiotic Free, Intramuscular 01/28/2024 PPD TEST, PPD, MULTIPUNCTURE 06/30/2023 ZOSTER Recombinant 04/21/2020 Medical History Medical History Date Comments Diabetes mellitus (HCC) Hyperlipidemia Hypertension Vitamin D deficiency Family History Medical History Relation Name Comments Diabetes Mother Relation Name Status Comments Mother Social History Tobacco Use Types Packs/Day Years Used Date Smoking Tobacco: Never Smokeless Tobacco: Never Tobacco Cessation:Counseling Given: Not Answered Comments Unknown Sex and Gender Information Value Date Recorded Sex Assigned at Not on file Legal Sex Female 2:07 PM CDT Gender Identity Not on file Sexual Orientation Not on file Obstetrics History Last Filed Vital Signs Vital Sign Reading [...] 07/25/2024 1:25 PM CDT Plan of Treatment Health Maintenance Due Date Last Done Comments Albumin Creatinine Ratio, Urine 1967 Cervical Cancer Screening 1967 Colon Cancer Screening-Colonoscopy 1967 Depression Screening 1967 Hepatitis C Screening 1967 Dilated Eye Exam 1967 Foot Exam 1967 DTaP/Tdap/Td Vaccine (1 - Tdap) 1978 Hepatitis B Screening 1985 Regular Well Visit/Exam 18-64 1985 Pneumococcal vaccine <65 (1 of 2 - PCV) 1986 Zoster Vaccine (2 of 2) 06/16/2020 04/21/2020 Lipid Panel 11/16/2024 11/17/2023 eGFR 11/16/2024 11/17/2023 Breast Cancer Screening-Mammogram 12/22/2024 Postponed from 1967 (Patient declined, but will receive in the future) Hemoglobin A1C 01/25/2025 07/25/2024, 03/01, 11/17/2023 Covid-19 Vaccine Completed 01/28/2024, 10/2022, 12/27/2021, Additional history exists Influenza Vaccine Completed 01/28/2024, , 12/31/2021, Additional history exists Procedures Procedure Name Priority Date/Time Associated Diagnosis [...] 9 AM CDT 11/17/2023 12:12 PM CDT Felix Jara MD LAB BLOOD ORDERABLES Final Re sult [facility] Department [place] [address] * POCT lipid panel (11/17/2023 10:43 AM [...] Most Recently Relevant to Health Maintenance Insurance [employer] [facility] HMO [facility] HMO Care Teams Cnc Laser Operator Relationship Specialty Start Date End Date Felix Jara MD PCP - General Internal Medicine 11/17/23
--- OUTSIDE RECORDS SUMMARY | 2024-08-18 07:47 | XMS_ITS ---
Author Organization [facility] Orthopedics [facility] Address [address] [place], [place] [id number] Care Team Providers Care Screen Tender Name Role Phone Manuel Arechiga Primary Care Provider REASON FOR VISIT L THR Encounters Encounter Location Date Provider Diagnosis [facility] [address] [place] [address] 06/23/2023 Manuel Arechiga PLAN OF TREATMENT No Information
[2024-08-18 08:34] LABS: Alanine Aminotransferase 24 U/L (6-35); Albumin Level 4.1 g/dL (3.5-5.1); Alkaline Phosphatase 67 U/L (38-126); Anion Gap 7 mmol/L (4-12); Aspartate Amino Transferase 29 U/L (14-36); Bilirubin,Total 0.3 mg/dL (0.2-1.3); Blood Urea Nitrogen 13 mg/dL (7-17); Carbon Dioxide 26 mmol/L (22-30); Chloride 106 mmol/L (98-107); Cholesterol 158 mg/dL (0-200); Estimated Glomerular Filt Rate > 60; Glucose 137 mg/dL (65-110); HDL Direct 47 mg/dL; Potassium 4.1 mmol/L (3.4-5.0); Sodium 139 mmol/L (137-145); Total Protein 7.1 g/dL (6.3-8.2); Triglycerides 104 mg/dL (<150)
[2024-08-18 08:45] LABS: LDL Cholesterol Direct 77 mg/dL
[2024-08-18 08:48] LABS: Hemoglobin A1C 6.7 % (<5.7)
[2024-08-18 10:37] LABS: Creatinine Urine 67.3 mg/dL
[2024-08-18 10:44] LABS: MALB Creatinine Ratio 31.4 mg/g (0-30); Microalbumin Urine Random 21.1 mg/L (0-16.7)
== END 2024-08-18 07:44 | disposition home or self-care (01) ==
PROVIDERS: PCP Emergency Medicine; Visit Provider Emergency Medicine
DX: E78.5 Hyperlipidemia, unspecified (principal); E55.9 Vitamin D deficiency, unspecified; E11.9 Type 2 diabetes mellitus without complications
CPT/HCPCS: 36415; 80053; 80061; 82043; 82306; 83036

== ENCOUNTER 2025-01-23 08:23 | Outpatient (CLI) | payer OTHER, SELFPAY ==
--- OUTSIDE RECORDS SUMMARY | 2023-08-02 11:54 | XMS_ITS | Encounter Summary ---
Author Organization [facility] Healthcare Address [address] [place] [address] Care Team Providers Care Lpn Cma Name Role Phone Fernando Haque MD Primary Care Provide r Reason for Visit * Diagnostic Imaging (Routine) - Closed Specialty Diagnoses / Procedures Referred By Clinton t Referred To Contact Diagnoses Left hip pain Procedures XR Hip Left 2 or 3 Views W Pelvis Manuel Arechiga MD Phone: tel: fax: [facility] Referral ID Status Reason Start Date Expiration Date Visits Re quested Visits Authorized [id number] Closed 08/02/2023 08/31/2024 1 1 Encounter Details Date Type Department Care Team (Late st Contact Info) Description 08/02/2023 12:54 PM CDT Hospital Encounter [facility] Orthopedics and Sports Medicine at [address] [phone] Social History Tobacco Use Types Packs/Day Years Used Date Smoking Tobacco: Never Smokeless Tobacco: Never Comments Unknown Sex and Gender Information Value Date Recorded Sex Assigned at Not on file Legal Sex Female 2:07 PM CDT Gender Identity Not on file Sexual Orientation Not on file documented as of this encounter Functional Status * BP Location Answer Date of Assessment Author Left arm 11/28/2024 2:36 PM CDT Aleisha Hernandez RMA * BP Location Answer Date of Assessment Author Left arm 11/28/2024 2:36 PM CDT Aleisha Hernandez RMA documented as of this encounter Plan of Treatment Not on file documented as of this encounter Procedures Procedure Name Priority Date/Time Associated Diagnosis Comments XR HIP LEFT W PELVIS 2 OR 3 VIEWS Schedule Routine, Read Routine (OP Routine) 08/02/2023 1:00 PM CDT Left hip pain documented in this encounter Results * XR Hip Left 2 or 3 Views W Pelvis (08/02/2023 1:00 PM CDT) Anatomical Region Laterality Modality Lower Extremities, Hip, Pelvis Left D igital Radiography Narrative 08/02/2023 1:09 PM CDT Today we obtained x-rays of the hip and pelvis and they show that the prosthesis is in excellent position with no signs of loosening or wear or any other problems. Her leg length and offset appeared to be equal on x-ray us Manuel Arechiga MD IMG XR PROCEDURES Final R esult documented in this encounter Visit Diagnoses Not on filedocumented in this encounter Care Teams Lpn Cma Relationship Specialty Start Date End Date Fernando Haque MD [address] [place] [address] PCP - General Emergency Medicine 06/17/23 11/16/23 documented as of this encounter
--- NOTE | ~2025-01-23 | MM_ITS ---
EXAMINATION: [facility] screening [facility] HISTORY: Screening TECHNIQUE: Craniocaudal and mediolateral oblique 3-D tomosynthesis images were obtained and synthetic 2-D images were generated. CAD analysis was submitted and interpreted. COMPARISON: Comparison to multiple prior studies sequentially, with oldest reviewed study dated 09/29/2019. BREAST PARENCHYMAL COMPOSITION: Not dense: There are scattered areas of fibroglandular density. FINDINGS: There is no evidence of suspicious mass, calcification, or architectural distortion to suggest malignancy in either breast. There has been no suspicious interval change. IMPRESSION: 1. No mammographic evidence of malignancy. 2. Recommend routine screening mammography in one year. BI-RADS Category 1: Negative Reviewed, dictated and finalized at location O. ET [facility]OW MARKER
--- OUTSIDE RECORDS SUMMARY | 2025-01-23 08:31 | XMS_ITS | Clinical Summary ---
Author Organization [facility] [place] [address] [facility] [address] Address [address] [place] [address] Care Team Providers Care Sealer Aircraft Name Role Phone Felix Jara MD Primary Care Provider [phone] Allergies Active Allergy Reactions Criticality Noted Date Comments Adhesive Rash,Redness Medium 08/29/2021 Adhesive Tape-Silicones Rash Medium 03/17/2024 Medications cholecalcifero l (VITAMIN D-3) 50,000 unit capsule Take 1 capsule (50,000 Units total) by mouth once a week 4 Active doxycycline (PERIOSTAT) 20 mg tablet Take 1 tablet (20 mg total) by mouth daily Active fluoride, sodium, (DENTA 5000 PLUS DENTAL) 1 application, Topical, qpm, 0 2 Active losartan (COZAAR) 25 mg tablet Take 1 tablet (25 mg total) by mouth daily Active metFORMIN (GLUCOPHAGE) 500 mg tablet Take 1 tablet (500 mg total) by mouth 2 (two) times a day Active blood glucose diagnostic strip 1 each by other route daily DX: E11.9 100 strip 3 5 Active atorvastatin (LIPITOR) 40 mg tablet Take 1 tablet (40 mg total) by mouth daily 90 tablet 3 5 07/26/19 26 Active amoxicillin 500 mg capsule TAKE 4 CAPSULE BY MOUTH SINGLE DOSE DIRECTED PREMEDICATION ONE HOUR BEFORE DENTAL APPOINTMENT. 5 Active fluoride, sodium, 1.1 % paste PLEASE SEE ATTACHED FOR DETAILED DIRECTIONS 5 Active lancets (Microlet Lancet) misc TEST SUGARS ONCE DAILY CONTOUR NEXT MACHINE DX E11.9 100 each 2 5 Active Active Problems Problem Noted Date Diagnosed Date [...] Encounters Date Type Department Care Team Description 11/29/2024 Results Follow-Up [facility] [address] [facility] [address] [place] [phone] Felix Jara MD Comprehensive metabolic panel, TSH, Lipid panel 11/28/2024 6:28 PM CDT - 11/28/2024 11:59 PM CDT Hospital Encounter [facility] [address] [place] [address] Type 2 diabetes mellitus without complication, without long-term current use of insulin (HCC); Hypertension associated with diabetes (HCC); Hyperlipidemia associated with type 2 diabetes mellitus (HCC); Chronic midline low back pain without sciatica Discharge Disposition: Discharge to home or self care 11/28/2024 2:15 PM CDT Office Visit [facility] [address] [phone] Felix Jara MD Type 2 diabetes mellitus without complication, without long-term current use of insulin (HCC) (Primary Dx); Immunization due; Hypertension associated with diabetes (HCC); Hyperlipidemia associated with type 2 diabetes mellitus (HCC); Chronic midline low back pain without sciatica from Last 3 Months Immunizations Immunization Administration Dates Next Due Heplisav-b (Hepatitis B) 08/08/2024 Influenza, Quadrivalent, Spl it, Preservative Free, Intramuscular 12/07/2022,12/31/2021,12/31/2020 Influenza, Trivalent, Cell C ulture-based MDCK, Preservative Free, Antibiotic Free, Intramuscular 01/28/2024 Influenza, Trivalent, Recomb inant, Egg Free, Preservative Free, Antibiotic Free, IM (FLUBLOK) 11/28/2024 PPD TEST, PPD, MULTIPUNCTURE 06/30/2023 Pneumococcal Conjugate Pcv21 08/08/2024 Tdap 08/08/2024 ZOSTER Recombinant 04/21/2020 Medical History Medical History Date Comments Diabetes mellitus Hyperlipidemia Hypertension Vitamin D deficiency Family History [...] Sign Reading Time Taken Comments Blood Pressure 140/69 11/28/2024 2:36 PM CDT Pulse 70 11/28/2024 2:36 PM CDT Temperature - - Respiratory Rate 14 06/17/2023 9:41 AM CDT Oxygen Saturation 98% 06/17/2023 9:41 AM CDT Inhaled Oxygen Concentration - - Weight 112 kg (247 lb) 11/28/2024 2:36 PM CDT Height 167.6 cm (5' 6) 07/25/2024 1:25 PM CDT Body Mass Index 39.87 07/25/2024 1:25 PM CDT Plan of Treatment Health Maintenance Due Date Last Done Comments Breast Cancer Screening-Mammogram 1967 Cervical Cancer Screening 1967 Depression Screening 1967 Hepatitis C Screening 1967 Dilated Eye Exam 1967 Foot Exam 1967 Regular Well Visit/Exam 18-64 1985 Zoster Vaccine (2 of 2) 06/16/2020 04/21/2020 Covid-19 Vaccine (2024-2 6 season) 2024 01/28/2024, 12/07/2022, 12/27/2021, Additional history exists eGFR 11/16/2024 11/17/2023 Hemoglobin A1C 05/28/2025 11/28/2024, 06/30, 03/17/2024, Additional history exists Albumin Creatinine Ratio, Urine 11/28/2025 Lipid Panel 11/28/2025 11/28/2024, 11/17/2023 DTaP/Tdap/Td Vaccine (2 - Td or Tdap) 08/08/2034 08/08/2024 Colon Cancer Screening-Colonoscopy 10/19/20342024 Hepatitis B Screening Completed 08/08/2024 Pneumococcal vaccine <65 Completed 08/08/2024 Influenza Vaccine Completed 11/28/2024, , 12/07/2022, Additional history exists Procedures Procedure Name Priority Date/Time Associated Diagnosis Comments ALBUMIN CREATININE RATIO, URINE Routine 11/28/2024 6:22 PM CDT Type 2 diabetes mellitus without complication, without long-term current use of insulin (HCC) Hypertension associated with diabetes (HCC) Hyperlipidemia associated with type 2 diabetes mellitus (HCC) Chronic midline low back pain without sciatica LIPID PANEL Routine 11/28/2024 2:57 PM CDT Type 2 diabetes mellitus without complication, without long-term current use of insulin (HCC) Hypertension associated with diabetes (HCC) Hyperlipidemia associated with type 2 diabetes mellitus (HCC) Chronic midline low back pain without sciatica TSH Routine 11/28/2024 2:57 PM CDT Type 2 diabetes mellitus without complication, without long-term current use of insulin (HCC) Hypertension associated with diabetes (HCC) Hyperlipidemia associated with type 2 diabetes mellitus (HCC) Chronic midline low back pain without sciatica COMPREHENSIVE METABOLIC PANEL Routine 11/28/2024 2:57 PM CDT Type 2 diabetes mellitus without complication, without long-term current use of insulin (HCC) Hypertension associated with diabetes (HCC) Hyperlipidemia associated with type 2 diabetes mellitus (HCC) Chronic midline low back pain without sciatica POCT HEMOGLOBIN A1C Routine 11/28/2024 2 :37 PM CDT Type 2 diabetes mellitus without complication, without long-term current use of insulin (HCC) EGFR Routine 11/17/2023 11:19 AM CDT Type 2 diabetes mellitus without complication, without long-term current use of insulin (HCC) Hypertension associated with diabetes (HCC) Hyperlipidemia associated with type 2 diabetes mellitus (HCC) from Last 3 Months or Most Recently Relevant to Health Maintenance Results * Albumin Creatinine Ratio, Urine (11/28/2024 6:22 PM CDT) Albumin Ur <12.0 mg/L Comment: Interpretive Data No reference range established. Current interpretive data was last revised 2018. Creatinine Ur 23.2 mg/dL [facility] Comment: Interpretive Data No reference range established. Current interpretive data was last revised 2018. Albumin Creatinine Ratio, Ur See Comment 1 - 29 mg/g [facility] Comment:Unable to calculate Urine 11/28/2024 6:22 PM CDT 11/28/2024 7:26 PM CDT us Felix Jara MD LAB URINE ORDERABLES Final Re sult [facility] [place] [address] * TSH (11/28/2024 2:57 PM CDT) TSH 2.14 0.27 - 4.20 uIU/mL [facility] Blood 11/28/2024 2:57 PM CDT 11/28/2024 3:24 PM CDT Felix Jara MD LAB BLOOD ORDERABLES Final Re sult Performing Organization Address [facility]/State/ZIP Co de Phone Number [facility] [address] * Lipid panel (11/28/2024 2:57 PM CDT) Triglyceride 111 0 - 150 mg/dL [facility] Cholesterol 177 0 - 200 mg/dL [facility] HDL 51 >45 mg/dL [facility] LDL-Calculated 104 mg/dL [facility] CHOL/HDL Risk Ratio 3 Ratio [facility] LDL/HDL Risk Ratio 2 Ratio [facility] Blood 11/28/2024 2:57 PM CDT 11/28/2024 3:24 PM CDT Felix Jara MD LAB BLOOD ORDERABLES Final Re sult Performing Organization Address City/[facility]/ZIP Co de Phone Number [facility] [address] * (ABNORMAL) Comprehensive metabolic panel (11/28/2024 2:57 PM CDT) Glucose 97 74 - 200 mg/dL [facility] BUN 10 6 - 20 mg/dL [facility] Creatinine 0.72 0.70 - 1.30 mg/dL [facility] BUN/Creat Ratio 14 Ratio [facility] Bilirubin, Total 0.4 0.0 - 1.2 mg/dL [facility] AST (SGOT) 14 0 - 32 U/L [facility] ALT (SGPT) 14 10 - 35 U/L [facility] Alkaline phosphatase 99 35 - 104 U/L [facility] Calcium 10.1(H) 8.6 - 10.0 mg/dL [facility] Sodium 138 135 - 145 mEq/L [facility] Potassium 4.1 3.5 - 5.1 mEq/L [facility] Chloride 99 98 - 107 mEq/L [facility] CO2 28.8 22.0 - 32.0 mEq/L [facility] Anion Gap 10 3 - 12 mEq/L [facility] Total Protein 7.1 6.0 - 8.1 g/dL [facility] Albumin 4.6 3.5 - 5.2 g/dL [facility] Globulin 2.5 g/dL [facility] Albumin/Globulin 1.8 Ratio [facility] eGFR 97.26 [facility] Blood 11/28/2024 2:57 PM CDT 11/28/2024 3:24 PM CDT us Felix Jara MD LAB BLOOD ORDERABLES Final Re sult [facility] [address] [place] [phone] * (ABNORMAL) POCT hemoglobin A1c (11/28/2024 2:37 PM CDT) Hemoglobin A1C, POC 6.5(A) 4.0 - 5.6 % Blood 11/28/2024 2:37 PM CDT us Felix Jara MD POINT OF CARE TEST ORDERABLES Final Result * eGFR (11/17/2023 11:19 AM CDT) eGFR [...] LAB BLOOD ORDERABLES Final Re sult [facility] [place] [address] from Last 3 Months or Most Recently Relevant to Health Maintenance Insurance [facility] HMO [facility] HMO Care Teams Sealer Aircraft Relationship Specialty Start Date End Date Felix Jara MD PCP - General Internal Medicine 11/17/23
--- OUTSIDE RECORDS SUMMARY | 2025-01-23 08:31 | XMS_ITS | Encounter Summary ---
Author Organization [facility] Address [address] [place] [address] Care Team Providers Care Argon Tester Name Role Phone Felix Jara MD Primary Care Provider [phone] Encounter Details Date Type Department Care Team (Latest Contact Info) Description 11/29/2024 Results Follow-Up [facility] [address] [place] [phone] Felix Jara MD [address] [place] [phone] Comprehensive metabolic panel, TSH, Lipid panel Social History Tobacco Use Types Packs/Day Years Used Date Smoking Tobacco: Never Smokeless Tobacco: Never Comments Unknown Sex and Gender Information Value Date Recorded Sex Assigned at Not on file Legal Sex Female 2:07 PM CDT Gender Identity Not on file Sexual Orientation Not on file documented as of this encounter Plan of Treatment Not on file documented as of this encounter Visit Diagnoses Not on filedocumented in this encounter Care Teams Argon Tester Relationship Specialty Start Date End Date Felix Jara MD PCP - General Internal Medicine 11/17/23 documented as of this encounter
== END 2025-01-23 08:24 | disposition home or self-care (01) ==
PROVIDERS: PCP Emergency Medicine; Visit Provider Emergency Medicine
DX: Z12.31 Encounter for screening mammogram for malignant neoplasm of breast (principal)
CPT/HCPCS: 77063; 77067